=== PATIENT | female | born 1960 | race Caucasian/White ===

== ENCOUNTER 2019-11-09 14:42 | Emergency (ER) | payer MEDICARE ==
[2019-11-09 14:57] VITALS: BP 133/101
--- NOTE | 2019-11-09 15:36 | ER Document Report ---
ED Medical Screen (RME) - General Chief Complaint: Leg Pain Stated Complaint: LEG PAIN Time Seen by Provider: 11/09/19 15:26 Mode of Arrival: Ambulatory Information source: Patient Notes: 59-year-old female patient presented emergency department chief complaint of swelling and tender area to her her left lower extremity. She is concerned she may have a blood clot. She has no history of blood clots but she states there is a strong family history of blood clots. She is a smoker but denies any recent travel or use of any oral contraceptives. She is not on any blood thinners. Tender area that appears to be a varicose vein noted to left lateral lower extremity. I have greeted and performed a rapid initial assessment of this patient. A comprehensive ED assessment and evaluation of the patient, analysis of test results and completion of the medical decision making process will be conducted by additional ED providers. I have specifically instructed the patient or family members with the patient to immediately return to any nursing staff should anything change in the patient's condition or with their chief complaint. - Related Data Allergies/Adverse Reactions: codiene Allergy (Uncoded 11/09/19 15:21) Physical Exam - Vital signs Vitals: Temp Pulse Resp BP Pulse Ox 98.2 F 80 18 133/101 H 97 11/09/19 14:54 11/09/19 14:54 11/09/19 14:54 11/09/19 14:54 11/09/19 14:54 Course - Vital Signs Vital signs: Temp Pulse Resp BP Pulse Ox 98.2 F 80 18 133/101 H 97 11/09/19 14:54 11/09/19 14:54 11/09/19 14:54 11/09/19 14:54 11/09/19 14:54
--- NOTE | 2019-11-09 18:07 | RADIOLOGY REPORT (SQ) ---
EXAM DESCRIPTION: VENOUS UNILATERAL LOWER IMAGES COMPLETED DATE/TIME: 11/09/2019 6:00 pm REASON FOR STUDY: RLE pain COMPARISON: None. TECHNIQUE: Dynamic and static hudson scale and color images acquired of the right leg venous system. S elected spectral images acquired with additional compression and augmentation maneuvers. The contrala teral common femoral vein and saphenofemoral junction were also imaged. Images stored on PACS. LIMITATIONS: None. FINDINGS: COMMON FEMORAL: Normal phasicity, compression and augmentation. No visualized echogenic ma terial on hudson scale. No defects on color images. FEMORAL: Normal compression and augmentation. No visualized echogenic material on hudson scale. No defe cts on color images. POPLITEAL: Normal compression, augmentation. No visualized echogenic material on hudson scale. No defec ts on color images. CALF VESSELS: Normal compression, augmentation. No visualized echogenic material on hudson scale. No de fects on color images. GSV and SSV: Normal compression, augmentation. No visualized echogenic material on hudson scale. No def ects on color images. ANY DEEP VENOUS INSUFFICIENCY: Not evaluated. ANY EVIDENCE OF POPLITEAL CYST: No. OTHER: No other significant finding. CONTRALATERAL COMMON FEMORAL VEIN AND SAPHENOFEMORAL JUNCTION: Normal phasicity, compression and augmentation. No visualized echogenic material on hudson scale. No de fects on color images. IMPRESSION: NO EVIDENCE DVT OR SVT IN THE RIGHT LEG. TECHNICAL DOCUMENTATION: JOB ID: [id number] 2010 [employer]- All Rights Reserved Reading location - IP/workstation name: [email or web address]
--- NOTE | 2019-11-09 18:25 | ER Document Report ---
HPI - HPI Time Seen by Provider: 11/09/19 15:26 Pain Level: 4 Notes: 59-year-old female patient presented emergency department chief complaint of swelling and tender area to her her left lower extremity. She is concerned she may have a blood clot. She has no history of blood clots but she states there is a strong family history of blood clots. She is a smoker but denies any recent travel or use of any oral contraceptives. She is not on any blood thinners. - CONSTITUTIONAL Notes: Tender area to left lateral lower extremity - REPRODUCTIVE Reproductive: DENIES: : Past Medical History - General Information source: Patient - Social History Smoking Status: Current Every Day Smoker Chew tobacco use (# tins/day): No Frequency of alcohol use: None Drug Abuse: None Family History: None Patient has homicidal ideation: No - Medical History Medical History: Negative Vertical Provider Document - CONSTITUTIONAL Notes: PHYSICAL EXAMINATION: GENERAL: Well-appearing, well-nourished and in no acute distress. HEAD: Atraumatic, normocephalic. EYES: Pupils equal round extraocular movements intact, conjunctiva are normal. ENT: Nares patent NECK: Normal range of motion LUNGS: No respiratory distress Musculoskeletal: Normal range of motion NEUROLOGICAL: Normal speech, normal gait. PSYCH: Normal mood, normal affect. SKIN: Varicose vein noted to left lateral lower extremity. No swelling, erythema or warmth to the extremity Course - Re-evaluation Re-evalutation: Venous Doppler was negative. Patient relieved, states that she can now go on her vacation without worry. The area of concern is a varicose vein as the patient and I both thought. The patient will be discharged home with ED return precautions. - Vital Signs Vital signs: Temp Pulse Resp BP Pulse Ox 98.2 F 80 18 133/101 H 97 11/09/19 14:54 11/09/19 14:54 11/09/19 14:54 11/09/19 14:54 11/09/19 14:54 Discharge - Discharge Clinical Impression: Varicose vein of leg Qualifiers: Varicose vein complication: unspecified Laterality: unspecified laterality Qualified Code(s): I83.90 - Asymptomatic varicose veins of unspecified lower extremity Condition: Stable Disposition: HOME, SELF-CARE Additional Instructions: The venous Doppler ultrasound of your leg was negative. There is no blood clot. Please follow-up with your primary care provider regarding the new varicose vein that has appeared. If you develop severe pain please return to the emergency department at once.
== END 2019-11-09 18:46 | disposition home or self-care (01) ==
LOC: ER 14:42
DX: I83.92 Asymptomatic varicose veins of left lower extremity (principal); F17.200 Nicotine dependence, unspecified, uncomplicated; Z82.49 Family history of ischemic heart disease and other diseases of the circulatory system
CPT/HCPCS: 93971; 99284